=== PATIENT | female | born 1995 | race Caucasian/White ===

== ENCOUNTER 2018-12-24 16:02 | Outpatient (CLI) | payer OTHER | END 2018-12-24 17:35 | disposition home or self-care (01) | LOC: OBT 16:02 → L-D 16:03 → OBT 17:35 | DX: O36.8130 Decreased fetal movements, third trimester, not applicable or unspecified (principal); Z3A.36 36 weeks gestation of pregnancy | CPT/HCPCS: 76815; 76818 ==